=== PATIENT | male | born 1960 | race Caucasian/White ===

== ENCOUNTER 2024-08-24 20:20 | Emergency (ER) | payer SELFPAY ==
[2024-08-24 20:26] VITALS: BP 129/105
--- NOTE | 2024-08-24 20:41 | EDRN ---
pt. refusing covid and flu testing at this time. pt. educated why it is important to test for those due to his traveling and symptoms but pt continues to deny.
[2024-08-24 21:02] LABS: % Basophils 0.3 % (0-2); % Eosinophils 0.1 % (0-6); % Immature Granulocytes 0.3 % (0-0.5); % Lymphocytes 9.1 % (20.5-51.1); % Monocytes 6.3 % (1.7-9.3); % Neutrophils 83.9 % (42.2-75.2); Absolute Lymphocytes 0.7 10^3/uL (1.2-3.4); Absolute Monocytes 0.5 10^3/uL (0.1-0.6); Absolute Neutrophils 6.1 10^3/uL (1.4-6.5); Hematocrit 43.8 % (39.0-52.0); Hemoglobin 15.6 g/dL (13.0-18.0); Mean Corp Hgb Conc. 35.6 g/dL (33.0-37.0); Mean Corpuscular Volume 89.8 fL (80.0-94.0); Mean Platelet Volume 10.7 fL (7.4-10.4); Nucleated Red Blood Cells % 0 % (-); Platelet Count 135 10^3/uL (130-400); Red Blood Cell Count 4.88 10^6/uL (4.70-6.10); Red Cell Dist. Width 12.6 % (11.5-14.5); White Blood Cell Count 7.3 10^3/uL (4.8-10.8)
[2024-08-24 21:11] LABS: ALT (SGPT) 31 U/L (0-50); AST (SGOT) 34 U/L (17-59); Albumin 4.6 g/dl (3.5-5.0); Alkaline Phosphatase 73 U/L (38-126); Blood Urea Nitrogen 10 mg/dl (9-20); Carbon Dioxide 23 mmol/L (22-30); Chloride 102 mmol/L (98-107); Glucose 126 mg/dl (70-99); Potassium 3.9 mmol/L (3.5-5.1); Sodium 134 mmol/L (135-145); Total Bilirubin 1.2 mg/dl (0.2-1.3); Total Protein 7.4 g/dl (6.3-8.2); eGFR > 60.00
[2024-08-24 21:16] LABS: Lipase 40 U/L (23-300)
[2024-08-24 22:02] VITALS: BP 150/94
[2024-08-24] MEDS: TYLENOL 1000 MG PO (22:13)
[2024-08-24 22:14] VITALS: BMI 25.1
[2024-08-24 22:42] LABS: Lactic Acid 1.1 mmol/L (0.7-2.0)
[2024-08-24 23:00] VITALS: BP 128/82
[2024-08-25] VITALS: BP 126/82
--- NOTE | 2024-08-25 00:45 | ED.SKININJ ---
Addendum entered and electronically signed by Asha Ramirez PA-C 08/26/24 09:36:
08/26/24: Blood culture growing gram positive cocci in clusters. Only 1 blood culture sent. I called and relayed result to patient via phone. Discussed that this may be a skin contaminant but cannot r/o bacteremia. He was advised to return to the ED
for re-evaluation and repeat cultures. Patient is adamantly refusing stating he feels better after starting the doxycycline. He agrees to f/u with his PCP within the next 48 hours and was encouraged to return to the ED immediately with any recurrent
fevers/worsening symptoms.
Original Note:
HPI-Injury
General
Chief Complaint: Bite
Source: patient
Time Seen by Provider: 08/25/24 00:28
History of Present Illness-Injury
Initial Injury comments:
64-year-old male presents to the emergency room complaining of a rash on the left hip which has been present for the past 3 days. He has been having fever, nausea. [place] and [place] ticks on him. He does not take any
prescription medications. He denies any medication allergies.
Past History
Past History
ED Past Medical History: None
ED Past Surgical History: None
Social History
Tobacco: Non-smoker
Alcohol: Daily
Phy Exam
Physical Exam
Physical Exam:
General: Awake, Alert, Oriented X3. No acute distress.
Vitals: unremarkable
Head: Atraumatic
Eyes: Pupils equal, EOMI
Throat: Airway intact, no exudates
Neck: Trachea midline
Lungs: Clear and equal b/l
Heart: Regular rate, no murmurs
Abd: Soft, Nontender, No pulsatile mass
Neuro: Nonfocal
Skin: Warm, dry, area of erythema noted left hip/flank. There is a central area of erythema with a surrounding area of clearing that further erythema all consistent with erythema migrans.
Extremities: pulses equal b/l, no edema
Course
Orders/Labs/Results
Orders:
Orders
08/24/24 20:42
Complete Blood Count/With Diff Urgent
Comprehensive Metabolic Panel Urgent
Lipase Urgent
Lyme Progressive Urgent
08/24/24 22:08
Acetaminophen [Tylenol] 1,000 mg .ROUTE .STK-MED ONE
08/24/24 22:12
Acetaminophen [Tylenol] 1,000 mg PO NOW STA
08/24/24 22:14
Lactate Level [Lactic Acid] Urgent
Blood Culture Urgent
FOREST Source: Blood/Venous
Specimen Description:
08/25/24 00:44
Doxycycline [Vibramycin] 100 mg PO NOW STA
Abnormal Lab Results
08/24/24
20:42
MCH 32.0 H pg
(27.0-31.0)
MPV 10.7 H fL
(7.4-10.4)
Absolute Lymphs (auto) 0.7 L 10^3/uL
(1.2-3.4)
Neutrophils % 83.9 H %
(42.2-75.2)
Lymphocytes % 9.1 L %
(20.5-51.1)
Sodium 134 L mmol/L
(135-145)
Glucose 126 H mg/dl
(70-99)
08/24/24 20:42
08/24/24 20:42
Vital Signs
Initial and Last Documented VS:
Initial Vital Signs
Temp Pulse Resp BP Pulse Ox
100.5 F H 105 20 129/105 96
08/24/24 20:26 08/24/24 20:26 08/24/24 20:26 08/24/24 20:26 08/24/24 20:26
Last Documented Vital Signs
Temp Pulse Resp BP Pulse Ox
99.6 F 105 20 126/82 93
08/24/24 23:33 08/24/24 20:26 08/24/24 20:26 08/25/24 00:00 08/25/24 00:48
MDM/Problems Addressed
Differential Diagnosis Includes:
Lyme disease, contact dermatitis, abscess, cellulitis
MDM/Problems Addressed:
Patient presents with a rash that is highly consistent with erythema migrans. The overall presentation is also consistent with Lyme disease. Will give him a dose of doxycycline here and sent a prescription for 14 days worth. Follow-up with his
primary care doctor to assure resolution.
*Pulse Oximetry
SaO2: 93
Oxygen Mode of Delivery: Room air
Patient hypoxic: no
*Critical Care Note
Total Time (30-74mins, 75-104mins- exclusive of procedures): Not Applicable
ED Attending Note
-
Portions of this chart may have been created with voice recognition software.� Occasional wrong word or��sound alike� substitutions may have occurred due to the inherent limitations of voice recognition software.
Discharge Plan
Departure
Patient Disposition: Home (Routine Discharge)
Date of Disposition: 08/25/24
Time of Disposition: 00:47
Patient with high blood pressure during this ER visit?: No
Condition: Good
Discharge Problem:
Erythema migrans (Lyme disease)
Instructions: Lyme Disease (DC)
Prescriptions:
New
doxycycline monohydrate 100 mg capsule
100 mg PO BID Qty: 28 0RF
Referrals:
Atul Laboy MD [Family Provider, Family Practice]
Interventions
Interventions:
*Risk Screen - Suicide Last Done: 08/24/24 20:26
*General Assessment Last Done: 08/24/24 20:26
*Neglect/Abuse Screening Last Done: 08/24/24 20:26
*ED- Fall Risk Assessment Last Done: 08/24/24 22:14
*ED COVID-19 Vaccine History Last Done: 08/24/24 22:14
*Nursing Disposition Last Done: 08/25/24 01:01
ED-Skin Assessment Last Done: 08/24/24 22:34
Discharge Date and Time
Discharge Date/Time: 08/25/24 01:01
Print Language: BELIZEAN
[2024-08-25] MEDS: VIBRAMYCIN 100 MG PO (00:56)
[2024-08-27 14:02] LABS: Lyme Antibody Screen, EIA Negative (Negative)
== END 2024-08-25 01:01 | disposition home or self-care (01) ==
LOC: EMR 20:20
PROVIDERS: Emergency Medicine; Registered Nurse; Student in an Organized Health Care Education/Training Program; EMERGENCY PHYSICIAN Emergency Medicine; FAMILY PHYSICIAN Family Medicine
DX: A26.0 Cutaneous erysipeloid (principal); A69.20 Lyme disease, unspecified
CPT/HCPCS: 99283; 80053; 83605; 83690; 85025; 86618; 87040; 87205